=== PATIENT | female | born 1965 | race Caucasian/White ===

== ENCOUNTER 2018-04-26 12:12 | Emergency (ER) | payer OTHER ==
[~2018-04-26] VITALS: Ht 165.1 cm; Wt 68.0 kg
[2018-04-26] MEDS ORDERED: TOPAMAX 25 MG T25 M1 PO (12:21)
[2018-04-26] MEDS ORDERED: WELLBUTRIN 100100 MG PO (12:21)
[2018-04-26] MEDS ORDERED: LIDOCAINE VISC100 ML PO (13:23)
[2018-04-26 13:29] VITALS: BP 110/71
== END 2018-04-26 13:31 | disposition home or self-care (01) ==
LOC: M.ERS 12:12
DX: J02.9 Acute pharyngitis, unspecified (principal); F41.9 Anxiety disorder, unspecified; Z88.0 Allergy status to penicillin